=== PATIENT | male | born 1960 | race Caucasian/White ===

== ENCOUNTER 2019-09-11 10:41 | Emergency (ER) | payer OTHER ==
[~2019-09-11] VITALS: Ht 182.9 cm; Wt 95.3 kg
== END 2019-09-11 11:01 | disposition left against medical advice (07) ==
LOC: M.ERS 10:41
DX: R07.89 Other chest pain (principal); I10 Essential (primary) hypertension; E78.00 Pure hypercholesterolemia, unspecified